=== PATIENT | male | born 1980 | race Two or more races ===

== ENCOUNTER 2017-08-01 23:54 | Emergency (ER) | payer SELFPAY ==
[2017-08-02 00:26] VITALS: BMI 26.4
--- NOTE | 2017-08-02 00:32 | ED PDOC ---
Arrival/HPI - General Time Seen by Provider: 08/02/17 00:25 Historian: Patient - History of Present Illness Narrative History of Present Illness (Text): 08/02/17 00:31 Naren Mckeon is a 37 year old male, whose past medical history includes sickle cell anemia and TIA, who presents to the Emergency department complaining of left-sided weakness and numbness 1 hour prior to arrival. Patient immediately upon arrival states symptoms are secondary to his sickle cell anemia and only needs Dilaudid IM and Benadryl IM. Patient does not want to be evaluated for stroke. Patient denies any headache, dizziness, chest pain, shortness of breath , or any other complaints. Patient was advised his pain would be treated with Dilaudid PO as per protocol and not IM. Code Stroke was called in the ER but patient refused to go to CT scan until he received IM medication. Time/Duration: 1 hour Symptom Onset: Gradual Symptom Course: Unchanged Activities at Onset: Light Past Medical History - Provider Review Nursing Documentation Reviewed: Yes Family/Social History - Physician Review Nursing Documentation Reviewed: Yes Family/Social History: Unknown Family HX Allergies/Home Meds Allergies/Adverse Reactions: Allergies haloperidol [From Haldol] Allergy (Verified 08/02/17 00:27) SWELLING iodine Allergy (Verified 08/02/17 00:27) SWELLING NSAIDS (Non-Steroidal Anti-Inflamma Allergy (Verified 08/02/17 00:27) SWELLING Home Medications: Home Meds Medication Instructions Recorded Confirmed Clopidogrel [Plavix] 75 mg PO DAILY 08/02/17 08/02/17 DiphenhydrAMINE [Benadryl] 50 mg PO DAILY 08/02/17 08/02/17 HYDROmorphone [Dilaudid] 8 mg PO BID 08/02/17 08/02/17 Physical Exam Finger Stick Blood Glucose: 132 Medical Decision Making ED Course and Treatment: 08/02/17 00:32 Impression: 37 year old male complaining of left-sided weakness/numbness 1 hour [facility]. Differential Diagnosis included but are not limited to: TIA vs. CVA Plan: -- CT Head w/o contrast -- EKG --Chest X-ray -- Labs, blood type and screen, lipid panel, troponin -- IV fluids -- Reassess and disposition Progress Notes: 08/02/17 00:33 Pt seen on arrival to Emergency department. Code Stroke called. Pt requesting Dilaudid and Benadryl IM only. Pt advised his pain would be treated with Dilaudid PO as per protocol and not IM. 08/02/17 00:35 Pt refusing to go [address] scan until he receives IM pain medication. 08/02/17 00:[address] Friend, who is aware and agrees with plan. Pt not a tPA candiddate. Pt kn 08/02/17 00:45 Pt seen eloping from Emergency room. seen ambulating out of er, after adivsed will tx sickle cell with po protocol - Lab Interpretations Lab Results: Lab Results 08/02/17 00:19: POC Glucose (mg/dL) 132 H - Medication Orders Current Medication Orders: Discontinued Medications Hydromorphone HCl (Dilaudid) 8 mg PO STAT STA Stop: 08/02/17 00:33 Last Admin: 08/02/17 00:41 Dose: 8 mg SAAD Pain Assessment Document 08/02/17 00:41 [email or web address] (Rec: 08/02/17 00:41 [email or web address] [id number]) Pain Reassessment Is this a pain reassessment? No Sleep Is patient sleeping during reassessment? No Presence of Pain Presence of Pain Yes Pain Scale Used Pain Scale Used Numeric Description Intensity of Pain at present 8 Sodium Chloride (Sodium Chloride 0.9%) 1,000 mls @ 100 mls/hr IV .Q10H [facility] NIHSS Scale ([place]) Time Performed: 00:33 rTPA Inclusion/Exclusion - Refusal of Treatment Patient Refused Treatment: No - Inclusion Criteria for Altepase Patient is 18 years or Older: No The Clinical Diagnosis of Ischemic Stroke That is Causing a Potentially Disabling Neurological Deficit: No Time of Onset is Well Established to be Less Than 270 Minute Before Treatment Would Begin: Yes Risk/Benefit Discussed With Patient/Family Member Present: No - Scribe Statement The provider has reviewed the documentation as recorded by the Jovana Ansari Provider Scribe Attestation: All medical record entries made by the Scribe were at my direction and personally dictated by me. I have reviewed the chart and agree that the record accurately reflects my personal performance of the history, physical exam, medical decision making, and the department course for this patient. I have also personally directed, reviewed, and agree with the discharge instructions and disposition. Disposition/Present on Arrival - Present on Arrival Any Indicators Present on Arrival: No - Disposition Have Diagnosis and Disposition been Completed?: Yes Diagnosis: Numbness, Weakness, Drug-seeking behavior Disposition: ELOPEMENT - ER ONLY Disposition Time: 01:00 Condition: UNKNOWN Discharge Instructions (ExitCare): Weakness (ED)
[2017-08-02] MEDS ORDERED: Sodium Chloride 0.9% 1,000 ML IV SCH (00:45)
== END 2017-08-02 01:25 | disposition left against medical advice (07) ==
LOC: ED 23:54
DX: R53.1 Weakness (principal); R20.0 Anesthesia of skin; Z76.5 Malingerer [conscious simulation]